=== PATIENT | male | born 1990 | race Caucasian/White ===

== ENCOUNTER → 2018-03-09 | Outpatient (CLI) | payer OTHER ==
--- NOTE | 2018-03-09 14:30 | CT ---
EXAMINATION TYPE: CT abdomen pelvis w con DATE OF EXAM: 03/09/2018 COMPARISON: None HISTORY: Generalized abdominal pain per order. Chest abdominal and groin pain for one month per patie nt. CT DLP: 855 mGycm, Automated Exposure Control for Dose Reduction was Utilized. CONTRAST: CT scan of the abdomen and pelvis is performed with oral and with IV Contrast, patient injected with 100 mL of Isovue 300. FINDINGS: LUNG BASES: No significant abnormality is appreciated. LIVER/GB: No significant abnormality is appreciated. PANCREAS: No significant abnormality is seen. SPLEEN: No significant abnormality is seen. ADRENALS: No significant abnormality is seen. KIDNEYS: Bladder is mildly distended with mild to minimal concentric wall thickening measuring up to just over 4 mm. A cystitis cannot be excluded. Correlate clinically along with urinary lab values. BOWEL: The oral contrast reaches level proximal left colon. Evaluation distal bowel suboptimal second thelma to lack of enteric contrast. There is no suspicious small or large bowel dilatation. Stomach is p oorly distended and thus suboptimally evaluated. Normal contrast-filled appendix is seen from the cec um in the right lower quadrant. PROSTATE/SEMINAL VESICLES: No gross abnormality seen. LYMPH NODES: No greater than 1cm abdominal or pelvic lymph nodes are appreciated. OSSEOUS STRUCTURES: No significant abnormality is seen. OTHER: No significant additional abnormality is seen. IMPRESSION: Possible acute cystitis. Clinical and urine lab correlation advised. Otherwise no suspici ous acute finding is seen to account for patient's symptoms.
== END | disposition home or self-care (01) ==
LOC: RADCTMAIN 11:39
PROVIDERS: ATTEND Internal Medicine
DX: R10.84 Generalized abdominal pain (principal)
CPT/HCPCS: 74177; Q9967